=== PATIENT | female | born 1965 ===

== ENCOUNTER 2023-04-07 16:09 | Inpatient (IN) | payer OTHER ==
[~2023-04-07] VITALS: Ht 160 cm; Wt 77.1 kg
== END 2023-04-11 14:30 | disposition home or self-care (01) | DRG 741 ==
LOC: O/R 04-10 06:36 → OB/GYN 04-10 10:45 → SURH 04-10 19:47
PROVIDERS: ADMIT Obstetrics & Gynecology Gynecologic Oncology; ATTEND Obstetrics & Gynecology Gynecologic Oncology
PROC: 0UT74ZZ Resection of Bilateral Fallopian Tubes, Percutaneous Endoscopic Approach (ICD-10-PCS; 2023-04-10)
PROC: 0UT24ZZ Resection of Bilateral Ovaries, Percutaneous Endoscopic Approach (ICD-10-PCS; 2023-04-10)
PROC: 07BC4ZZ Excision of Pelvis Lymphatic, Percutaneous Endoscopic Approach (ICD-10-PCS; 2023-04-10)
PROC: 0UT94ZZ Resection of Uterus, Percutaneous Endoscopic Approach (ICD-10-PCS; principal; 2023-04-10 19:45)
DX: C54.1 Malignant neoplasm of endometrium (principal); D25.1 Intramural leiomyoma of uterus; D25.2 Subserosal leiomyoma of uterus; Z20.822 Contact with and (suspected) exposure to COVID-19